=== PATIENT | male | born 1955 | race Caucasian/White ===

== ENCOUNTER → 2017-02-13 | Outpatient (CLI) | payer OTHER ==
--- NOTE | 2017-02-13 10:47 | KCIC ---
Three-view bilateral knee dated 02/13/2017. No comparison available. Clinical indication: Knee pain. FINDINGS: 3 views bilateral knee show normal bony alignment. No displaced fracture. Mild tricompartmental hypertrophic changes bilaterally, most severe in the medial compartment with asymmetric medial joint space narrowing. No apparent joint effusion or loose body. IMPRESSION: 1. No acute radiographic abnormality. 2. Mild tricompartmental primary DJD Electronically signed by: Acosta Hicks MD (02/13/2017 10:44 AM) [facility]– [id number]
--- NOTE | 2017-02-13 11:01 | KCIC ---
Three-view bilateral hand dated 02/13/2017. No comparison available. Clinical indication: Hand pain. Polyarthralgia. FINDINGS: 3 views of right hand show moderate hypertrophic changes at the second and third MCP joint with joint space narrowing. Mild degenerative changes of the interphalangeal joints throughout. Moderate degenerative change of the scaphotrapezial joint. No erosive changes or periostitis. Similar findings are seen on the left there is moderate degenerative change of the interphalangeal joints, particularly involving the third PIP joint with small erosions along the ulnar side of the head of the second and third proximal phalanx. Small corticated fragment at the ulnar styloid, most likely accessory ossification center. Mild degenerative change at the radiocarpal joint. IMPRESSION: 1. Degenerative changes as described above. There is predominant MCP and PIP joint involvement with ulnar-sided erosions of the head of the proximal phalanges, suggesting a component of rheumatoid arthritis. Intermixed degenerative arthrosis at the DIP joints and scaphotrapezial joints. Electronically signed by: Acosta Hicks MD (02/13/2017 10:57 AM) [facility]
== END | disposition home or self-care (01) ==
LOC: KCIC 09:48
PROVIDERS: ATTEND Internal Medicine Rheumatology
DX: M17.0 Bilateral primary osteoarthritis of knee (principal); M79.641 Pain in right hand; M79.642 Pain in left hand
CPT/HCPCS: 73130; 73562

== ENCOUNTER → 2017-03-06 | Outpatient (CLI) | payer OTHER ==
--- NOTE | 2017-03-06 10:15 | KCIC ---
EXAM: Chest, 2 views. HISTORY: Shortness of breath. COMPARISON: None. FINDINGS: Frontal and lateral views of the chest are obtained. There is no infiltrate, effusion or pneumothorax. The heart is normal in size. There is hyperinflation due to inspiratory effort or mild emphysema. There is a small circumscribed nodular opacity overlying the left lower thorax, possibly due to a nipple shadow. IMPRESSION: 1. No acute pulmonary finding. 2. Small nodular opacity overlying the left lower thorax, possibly due to a nipple shadow. Follow-up following placement of nipple markers can be performed to exclude a pulmonary nodule in this location. Electronically signed by: Miya Barboza MD (03/06/2017 10:12 AM) [facility], [place]
== END | disposition home or self-care (01) ==
LOC: KCIC 09:45
PROVIDERS: ATTEND Internal Medicine
DX: J44.9 Chronic obstructive pulmonary disease, unspecified (principal); R91.8 Other nonspecific abnormal finding of lung field
CPT/HCPCS: 71020

== ENCOUNTER → 2017-03-21 | Outpatient (CLI) | payer OTHER ==
--- NOTE | 2017-03-21 09:32 | KCIC ---
EXAM: Chest, 2 views. HISTORY: Pulmonary nodule. COMPARISON: 03/06/2017 FINDINGS: Frontal and lateral views of the chest were obtained following the placement of nipple markers. The recently demonstrated nodular opacity overlying the left thorax corresponds to nipple shadow, demarcated by a metallic nipple marker. There is no infiltrate, effusion or pneumothorax. The heart is normal in size. IMPRESSION: 1. No acute pulmonary finding. 2. Nipple shadow corresponding with a recently demonstrated nodular opacity overlying the left lower thorax. No persistent suspicious nodule is seen. Electronically signed by: Miya Barboza MD (03/21/2017 9:29 AM) [facility]
== END | disposition home or self-care (01) ==
LOC: KCIC 08:27
PROVIDERS: ATTEND Internal Medicine
DX: R91.1 Solitary pulmonary nodule (principal)
CPT/HCPCS: 71020

== ENCOUNTER → 2017-12-30 | Outpatient (CLI) | payer OTHER ==
--- NOTE | 2017-12-30 14:14 | RESP ---
DATE OF SERVICE: 12/30/2017 PULMONARY FUNCTION TESTS ATTENDING PHYSICIAN: Dr. Lim. The patient's FVC was 5.1, which is 93% predicted, FEV1 3.40, which is 81% predicted. The FEV1/FVC ratio was mildly reduced. DRT61-13 was 48% predicted. No bronchodilators were given. Lung volume showed a total lung capacity, which was normal. Residual volume 123% predicted. Diffusion capacity is normal. IMPRESSION: 1. Spirometry findings suggesting a small airway dysfunction/mild obstructive airway disease. 2. No bronchodilators were given. 3. Normal lung volumes. 4. Normal diffusion capacity. YAHAIRA LAMAR MD DR: KULWINDER/master JOB#: [id number] / [id number]
== END | disposition home or self-care (01) ==
LOC: PF 09:24
PROVIDERS: ATTEND Internal Medicine
DX: R06.02 Shortness of breath (principal); J44.9 Chronic obstructive pulmonary disease, unspecified; M17.0 Bilateral primary osteoarthritis of knee
CPT/HCPCS: 94010; 94729